=== PATIENT | male | born 1995 | race Caucasian/White ===

== ENCOUNTER 2021-09-26 18:56 | Emergency (ER) | payer OTHER ==
[~2021-09-26] VITALS: Ht 182.9 cm; Wt 65.0 kg
[2021-09-26] MEDS ORDERED: CYCLOBENZAPRINE10 MG PO (19:49)
[2021-09-26] MEDS ORDERED: NAPROXEN500 MG PO (19:49)
[2021-09-26 20:07] VITALS: BP 117/66
== END 2021-09-26 21:15 | disposition home or self-care (01) | DRG 563 ==
LOC: ED 18:56
DX: S83.92XA Sprain of unspecified site of left knee, initial encounter (principal); V49.40XA Driver injured in collision with unspecified motor vehicles in traffic accident, initial encounter